=== PATIENT | male | born 1970 | race Caucasian/White ===

== ENCOUNTER 2020-02-29 19:34 | Emergency (ER) | payer OTHER ==
[2020-02-29 20:09] LABS: ABS Basophils 0.1 10^3/ul (0-0.2); ABS Eosinophils 0.2 10^3/ul (0-0.6); ABS Lymphocytes 2.9 10^3/ul (1.0-4.8); ABS Monocytes 0.8 10^3/ul (0-0.8); Eosinophil % 1.2 %; Hematocrit 54 % (42-52); Hemoglobin 18.8 g/dL (14.0-18.0); Lymphocyte % 17.1 %; Mean Corpuscular HGB Conc 35 g/dL (31-36); Mean Corpuscular Hemoglobin 35 pg (27-31); Mean Corpuscular Volume 100 fL (80-94); Mean Platelet Volume 8.5 fL (7.4-10.4); Nucleated Red Blood Cells % 0.1; Platelet Count 262 10^3/uL (150-450); Red Blood Count 5.35 10^6 /uL (4.18-5.48); Red Cell Distribution Width 16 % (10-15); White Blood Count 17.2 10^3/uL (3.5-10.8)
[2020-02-29 20:16] LABS: ALT 11 U/L (7-52); AST 17 U/L (13-39); Albumin 4.9 g/dL (3.2-5.2); Albumin/Globulin Ratio 1.4 (1-3); Alkaline Phosphatase 115 U/L (34-104); Anion Gap 12 mmol/L (2-11); BUN/Creatinine Ratio 7.1 (8-20); Blood Urea Nitrogen 7 mg/dL (6-24); CO2 Carbon Dioxide 24 mmol/L (22-32); Calcium 9.6 mg/dL (8.6-10.3); Chloride 102 mmol/L (101-111); Creatine Kinase 89 U/L (10-223); EGFR African American 96.8 (>60); Globulin 3.4 g/dL (2-4); Glucose 113 mg/dL (70-100); Potassium 3.8 mmol/L (3.5-5.0); Sodium 138 mmol/L (135-145); Total Protein 8.3 g/dL (6.4-8.9)
[2020-02-29] MEDS ORDERED: NS 0.9% 1000 ml BAG 1,000 ML IV ONE (20:21)
[2020-02-29 20:26] LABS: Acetaminophen < 15 mcg/mL; Alcohol, S 115 mg/dL (<10); Salicylate < 2.50 mg/dL (<30)
[2020-02-29 22:02] LABS: Urine Appearance Clear; Urine Bilirubin Negative (Negative); Urine Blood Negative (Negative); Urine Color Yellow; Urine Glucose Negative (Negative); Urine Ketones Negative (Negative); Urine Nitrite Negative (Negative); Urine Protein 1+(30 mg/dL) (Negative); Urine Urobilinogen Positive (Negative)
[2020-02-29 22:04] LABS: Urine Bacteria Absent (Absent); Urine Red Blood Cell Trace(0-2/hpf) (Absent); Urine White Blood Cell 1+(6-10/hpf) (Absent)
[2020-02-29 22:39] LABS: Urine Benzodiazepine Screen None Detected (None Detect); Urine Opiates Screen Presumptive Positive (None Detect)
[2020-02-29 23:16] VITALS: BP 120/79
== END 2020-02-29 23:05 | disposition home or self-care (01) ==
LOC: ED 19:34